=== PATIENT | female | born 1985 | race Caucasian/White ===

== ENCOUNTER 2024-02-01 07:39 | Day surgery (SDC) | payer BC, OTHER ==
[2024-02-01] MEDS ORDERED: Lidocaine 2% 100 MG/5 ML Syringe IVPUSH ONE (07:40)
[2024-02-01] MEDS ORDERED: Ondansetron 4 MG/2 ML SDV IVPUSH ONE (07:40)
[2024-02-01] MEDS ORDERED: Propofol 200 MG/20 ML SDV IV ONE (07:40)
[2024-02-01] MEDS ORDERED: Sodium Chloride 0.9% 10 ML Syringe FLUSH PRN (07:45)
[2024-02-01] MEDS: Lactated Ringers 1,000 ML IV SCH (08:25)
[2024-02-01] MEDS: Ondansetron 4 MG/2 ML SDV IVPUSH ONE (08:27)
[2024-02-01] MEDS: Simethicone Drops 40 MG/0.6 ML 30 ML Bottle PO ONE (09:19)
[2024-02-01 11:13] VITALS: BP 113/65; PULSE 59
== END 2024-02-01 10:36 | disposition home or self-care (01) ==
LOC: FB.SDS 07:39
PROVIDERS: ATTEND Surgery
DX: K62.5 Hemorrhage of anus and rectum (principal); K64.4 Residual hemorrhoidal skin tags; K57.30 Diverticulosis of large intestine without perforation or abscess without bleeding; K62.89 Other specified diseases of anus and rectum; F41.9 Anxiety disorder, unspecified; F32.A Depression, unspecified; Z88.1 Allergy status to other antibiotic agents; Z79.899 Other long term (current) drug therapy; Z87.891 Personal history of nicotine dependence
CPT/HCPCS: 00811; A9270-GY; J2405; J2704; J7120

== ENCOUNTER 2024-09-26 06:49 | Day surgery (SDC) | payer BC, OTHER ==
[~2024-09-26 06:49] MED LIST: Lactated Ringers 1,000 ML IV SCH; Sodium Chloride 0.9% 10 ML Syringe FLUSH PRN
[2024-09-26] MEDS ORDERED: diphenhydrAMINE 50 MG/ML SDV IVPUSH ONE (06:50)
[2024-09-26] MEDS ORDERED: Dexamethasone 4 MG/ML 5 ML MDV IVPUSH ONE (06:50)
[2024-09-26] MEDS ORDERED: Midazolam 1 MG/ML 2 ML SDV IV ONE (06:50)
[2024-09-26] MEDS ORDERED: fentaNYL 100 MCG/2 ML SDV IV ONE (06:50)
[2024-09-26] MEDS ORDERED: Ondansetron 4 MG/2 ML SDV IVPUSH ONE (06:50)
[2024-09-26] MEDS ORDERED: Propofol 200 MG/20 ML SDV IV ONE (06:50)
[2024-09-26 07:43] VITALS: BP 130/87; PULSE 80
[2024-09-26] MEDS: Lactated Ringers 1,000 ML IV SCH (08:08)
[2024-09-26] MEDS: Bupivacaine 0.5% 30 ML SDV INJECT ONE (08:26)
[2024-09-26] MEDS: Lidocaine 1% with EPINEPHrine 1:100,000 20 ML MDV INJECT ONE (08:26)
== END 2024-09-26 09:57 | disposition home or self-care (01) ==
LOC: FB.SDS 06:49
PROVIDERS: ATTEND Surgery
DX: K64.4 Residual hemorrhoidal skin tags (principal); K60.2 Anal fissure, unspecified; K62.89 Other specified diseases of anus and rectum; Z88.1 Allergy status to other antibiotic agents; Z79.899 Other long term (current) drug therapy; Z87.891 Personal history of nicotine dependence
CPT/HCPCS: 00902; 88304; J0665; J1100; J1200; J2004; J2250; J2405; J2704; J3010; J7120